=== PATIENT | male | born 1970 | race Caucasian/White ===

== ENCOUNTER 2017-11-03 12:52 | Observation (INO) ==
--- NOTE | 2017-11-03 12:57 | Emergency Department Note ---
Disposition Clinical Impression: Chest pain, COPD (chronic obstructive pulmonary disease), Hypertension Disposition: Admitted As Inpatient Condition: Good General Adult HPI - General Chief complaint: ED Shortness of Breath/Dyspnea Stated complaint: ELIU and chest pain Time Seen by Provider: 11/03/17 12:53 Source: patient Mode of arrival: ambulatory Limitations: no limitations Nursing Notes Reviewed: Yes Vital Signs Reviewed: Yes - History of Present Illness HPI Narrative: Patient claims up and having chest pain with shortness breath off and on for a couple of days. He got concerned was blood pressure was high today so he came to the emergency department. 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 Radiation: non-radiation Pain Severity: moderate Quality: aching Consistency: intermittent Improves with: nothing Worsens with: nothing Associated symptoms: Reports: denies other symptoms - Related Data Home Medications Medication Instructions Recorded Confirmed Furosemide [Lasix] 20 mg PO DAILY 08/31/16 11/03/17 Metoprolol XL (24 HR) Succ [Toprol 50 mg PO DAILY 08/31/16 11/03/17 Xl] Spironolactone [Aldactone] 25 mg PO BID 08/31/16 11/03/17 Previous Rx's Medication Instructions Recorded Aspirin 81 mg PO DAILY #30 tab.chew 05/17/16 Lisinopril [Zestril] 2.5 mg PO DAILY #30 tablet 05/17/16 Rosuvastatin [Crestor] 40 mg PO HS #30 tablet 05/17/16 Ticagrelor [Brilinta] 90 mg PO BID #60 tablet 05/17/16 Amiodarone [Cordarone] 200 mg PO DAILY #30 tablet 06/22/17 Allergies Allergy/AdvReac Type Severity Reaction Status Date / Time Penicillins Allergy Unknown Unkown Verified 11/03/17 12:53 All systems ED: reviewed and negative except as stated. Review of Systems: As Per HPI Constitutional: Denies: fever, chills, weakness, weight change Eyes: Denies: eye pain, eye discharge, vision change ENT ED: Denies: ear pain, throat pain, dental pain, hearing loss, epistaxis, congestion, dysphagia Cardiovascular: Reports: as per HPI, chest pain. Denies: palpitations, dyspnea on exertion, edema, syncope Respiratory: Reports: as per HPI, other (intermittent SOB). Denies: cough, dyspnea, wheezes, hemoptysis, stridor Gastrointestinal: Denies: abdominal pain, nausea, vomiting, diarrhea, constipation, hematemesis, melena, hematochezia Genitourinary: Denies: urgency, dysuria, frequency, hematuria Musculoskeletal: Denies: back pain, neck pain, arthralgia, myalgia Integumentary: Denies: rash, abrasion, lesions Neurological: Denies: headache, weakness, numbness, paresthesias, confusion, abnormal gait, vertigo Psychiatric: Denies: anxiety, depression, suicidal thoughts, homicidal thoughts , auditory hallucinations, visual hallucinations Endocrine: Denies: fatigue Hematological/Lymphatic: Denies: easy bleeding, easy bruising Allergic/Immunologic: Denies: facial swelling, urticaria Past Medical History - Past Medical History Attestation: Yes The following information was validated with the patient. Source: patient, nursing notes reviewed Medical history: Reports: cardiomyopathy, coronary artery disease, GERD, hyperlipidemia, hypertension, myocardial infarction, SVT Surgical history: Reports: no surgical history Psychiatric history: Reports: no psych history - Social History Smoking Status: Former smoker Smokeless Tobacco Status: No Alcohol use: Reports: none Drug use: Reports: none Physical Exam - General Limitations: no limitations General appearance: alert, in no apparent distress - Head Head exam: atraumatic, normocephalic, normal inspection - Eye Eye exam: Present: normal appearance, PERRL, EOMI - ENT ENT exam: normal exam, normal oropharynx, mucous membranes moist - Neck Neck exam: Present: normal inspection, full ROM, trachea midline - Chest Chest inspection: Present: normal inspection, symmetric chest wall rise - Respiratory Respiratory exam: Present: normal lung sounds bilaterally - Cardiovascular Cardiovascular exam: Present: regular rate, normal rhythm, normal heart sounds - Abdominal Exam Abdominal exam: Present: soft, Non-Tender. Absent: tenderness, distention, guarding, rebound, rigidity - Extremities Exam Extremities exam: Present: normal inspection, full ROM. Absent: tenderness, pedal edema - Back Exam Back exam: Present: normal inspection, full ROM. Absent: tenderness - Neurological Exam Neurological exam: Present: alert, oriented X3 - Psychiatric Psychiatric exam: Present: normal affect, normal mood - Skin Skin exam: Present: warm, dry, intact Medical Decision Making - [facility] Narrative Medical decision making narrative: I reviewed the patient's medication list. I discussed laboratory findings EKG and x-ray findings with the patient and they have decided they would like to stay overnight for a rule out to be safe. Case discussed with Dr. Alfaro patient is to be admitted to his care - EKG Data EKG #1 EKG attestation: Yes I reviewed and interpreted this EKG. EKG results narrative: EKG shows sinus rhythm with possible left atrial enlargement. Ventricular rate of 93 bpm. MO interval 184 ms. QRS duration 112 ms. QT interval 372 ms. QTC 422 ms. R axis of 96 degrees. There is no acute ST elevation.
[2017-11-03] MEDS ORDERED: Aspirin 81 MG TAB.CHEW PO STA (12:59)
[2017-11-03] MEDS ORDERED: Nitroglycerin 0.4 MG TAB.SUBL SL PRN ×3 (12:59→15:45)
[2017-11-03] MEDS ORDERED: Ipratropium/Albuterol Neb 3 ML IH ONE (12:59)
[2017-11-03 13:22] LABS: Basophils % 0.4 %; Eosinophils # 0.2 K/mcL (0.0-0.6); Eosinophils % 1.9 %; Hematocrit 42.7 % (37.5-50.1); Hemoglobin 14.2 g/dL (12.9-16.9); Immature Granulocytes % 0.4 % (0-4); Lymphocytes # 2.4 K/mcL (0.6-4.6); Lymphocytes % 22.2 %; Mean Corpuscular HGB Conc 33.3 g/dL (31.6-35.5); Mean Corpuscular Hemoglobin 28.6 pg (28.0-33.3); Mean Corpuscular Volume 86.1 fL (83.0-100.0); Mean Platelet Volume 11.5 fL (9.4-12.4); Monocytes # 0.5 K/mcL (0.0-1.3); Monocytes % 4.9 %; Neutrophils # 7.5 K/mcL (1.6-8.9); Platelet Count 221 K/mcL (140-400); Red Blood Count 4.96 M/mcL (4.19-5.50); Segmented Neutrophils % 70.2 %
[2017-11-03 13:29] LABS: Prothrombin Time 11.1 Seconds (9.4-12.1)
[2017-11-03 13:31] LABS: Activated Partial Thrombo Time 32.2 Seconds (26.0-36.0)
[2017-11-03 13:40] LABS: Alanine Aminotransferase 53 Units/L (7-52); Albumin 3.9 g/dL (3.5-5.7); Albumin/Globulin Ratio 1.4 (1.1-2.2); Alkaline Phosphatase 72 Units/L (34-104); Aspartate Amino Transferase 34 Units/L (13-39); BUN/Creatinine Ratio 11 (6-26); Bilirubin,Total 1.1 mg/dL (0.3-1.0); Blood Urea Nitrogen 11 mg/dL (6-20); Calcium 8.9 mg/dL (8.6-10.3); Carbon Dioxide 25 mEq/L (23-29); Chloride 105 mEq/L (98-107); Globulin 2.7 g/dL (2.4-3.5); Glucose 162 mg/dL (70-105); Osmolality,Calculated 291 (280-300); Potassium 3.6 mEq/L (3.5-5.1); Sodium 139 mEq/L (136-145); Total Protein 6.6 g/dL (6.4-8.9); eGFR For Non-African Americans > 60 (> 60)
[2017-11-03 13:46] LABS: Troponin I 0.03 ng/mL (< 0.04)
[2017-11-03] MEDS ORDERED: Naloxone 0.4 MG/ML INJ IVP PRN (15:45)
[2017-11-03] MEDS ORDERED: 0.9 % Sodium Chloride 1,000 ML IVC SCH (15:45)
[2017-11-03] MEDS: Furosemide 20 MG TABLET PO SCH (16:03)
[2017-11-03] MEDS: *HR* Amiodarone 200 MG TABLET PO SCH (16:03)
[2017-11-03] MEDS: Metoprolol XL (24 HR) Succ 50 MG TAB.ER.24H PO SCH (16:03)
[2017-11-03] MEDS: Spironolactone 25 MG TABLET PO SCH (20:29)
[2017-11-03] MEDS: *HR* Ticagrelor 90 MG TABLET PO SCH (20:29)
[2017-11-04] MEDS ORDERED: Ipratropium/Albuterol Neb 3 ML IH PRN (00:26)
[2017-11-04] MEDS ORDERED: Isovue-370 500 ML INFUS..BTL IV ONE (01:23)
[2017-11-04] MEDS ORDERED: Furosemide 40 MG/4 ML VIAL IVP ONE (01:27)
[2017-11-04 05:15] LABS: Basophils % 0.3 %; Eosinophils # 0.1 K/mcL (0.0-0.6); Eosinophils % 0.7 %; Hematocrit 42.6 % (37.5-50.1); Hemoglobin 14.2 g/dL (12.9-16.9); Immature Granulocytes % 0.5 % (0-4); Lymphocytes # 2.2 K/mcL (0.6-4.6); Lymphocytes % 15.1 %; Mean Corpuscular HGB Conc 33.3 g/dL (31.6-35.5); Mean Corpuscular Hemoglobin 28.6 pg (28.0-33.3); Mean Corpuscular Volume 85.9 fL (83.0-100.0); Mean Platelet Volume 11.4 fL (9.4-12.4); Monocytes % 6.8 %; Neutrophils # 11.3 K/mcL (1.6-8.9); Platelet Count 225 K/mcL (140-400); Red Blood Count 4.96 M/mcL (4.19-5.50); Red Cell Distribution Width 13.9 % (11.5-14.5); Segmented Neutrophils % 76.6 %
[2017-11-04 05:33] LABS: BUN/Creatinine Ratio 13 (6-26); Blood Urea Nitrogen 12 mg/dL (6-20); Calcium 9.1 mg/dL (8.6-10.3); Carbon Dioxide 30 mEq/L (23-29); Chloride 98 mEq/L (98-107); Glucose 121 mg/dL (70-105); Osmolality,Calculated 281 (280-300); Potassium 3.7 mEq/L (3.5-5.1); Sodium 135 mEq/L (136-145); eGFR For Non-African Americans > 60 (> 60)
--- NOTE | 2017-11-04 08:51 | Event Note ---
Date of Encounter: 11/04/17 Time of Encounter: 08:45 Received call from nurse at 12:16 AM that patient became short of breath, diaphoretic and with RR in 30s upon ambulating to restroom. Symptoms persisted at rest. Labs ordered and with elevated D-dimer. EKG repeated and reportedly benign. CXR performed and with pulmonary edema. IV fluids were held and pt was administered 40mg of lasix IV once. Respiratory therapy assessed patient and a duoneb was administered and then ordered q2h PRN. A CTPA was performed given abrupt onset of respiratory distress and elevated d-dimer. The study was negative for PE and further demonstrated pulmonary edema. Per nurse report this morning, pt was improved and no no longer under respiratory distress.
[2017-11-04] MEDS ORDERED: Furosemide 20 MG TABLET PO SCH (09:00)
[2017-11-04] MEDS ORDERED: *HR* Amiodarone 200 MG TABLET PO SCH (09:00)
[2017-11-04] MEDS ORDERED: Metoprolol XL (24 HR) Succ 50 MG TAB.ER.24H PO SCH (09:00)
[2017-11-04] MEDS: *HR* Amiodarone 200 MG TABLET PO SCH (09:26)
[2017-11-04] MEDS: Metoprolol XL (24 HR) Succ 50 MG TAB.ER.24H PO SCH (09:26)
[2017-11-04] MEDS: Spironolactone 25 MG TABLET PO SCH ×2 (09:26→21:26)
[2017-11-04] MEDS: Furosemide 20 MG TABLET PO SCH (09:27)
[2017-11-04] MEDS: Aspirin 81 MG TAB.CHEW PO SCH (09:27)
[2017-11-04] MEDS: *HR* Ticagrelor 90 MG TABLET PO SCH ×2 (09:28→21:26)
--- NOTE | 2017-11-04 13:17 | Internal Med History&Physical ---
Date of Encounter: 11/04/17 Time of Encounter: 12:35 Assessment and Plan (1) Shortness of breath Current visit: No Status: Acute Possibly multifactorial etiology. Chest CTA done earlier today to further evaluate elevated d-dimer showed findings consistent with CHF. Room air oximetry will be checked prior to discharge. (2) Combined systolic and diastolic congestive heart failure Current visit: No Status: Chronic Order BN peptide. Lasix dose will be increased. Lisinopril has been increased. Continue Aldactone and Toprol. Qualifiers: Heart failure chronicity: chronic Qualified Code(s): I50.42 - Chronic combined systolic (congestive) and diastolic (congestive) heart failure (3) Blood glucose elevated Current visit: No Status: Acute Hemoglobin A1c was 5.6% on 05/16/2016. Recheck in a.m. (4) Leukocytosis Current visit: No Status: Acute Present intermittently since October 2013. Recheck in a.m. Qualifiers: Leukocytosis type: unspecified Qualified Code(s): D72.829 - Elevated white blood cell count, unspecified (5) Chest pain Current visit: Yes Status: Acute Repeat cardiac enzymes were ordered through emergency room. Qualifiers: Chest pain type: unspecified Qualified Code(s): R07.9 - Chest pain, unspecified (6) CAD (coronary artery disease) Current visit: No Status: Chronic Continue Toprol, aspirin, and Brilinta. Add isosorbide. Qualifiers: Coronary Disease-Associated Artery/Lesion type: viejas artery [place] vs. transplanted heart: viejas heart Associated angina: angina presence unspecified Qualified Code(s): I25.10 - Atherosclerotic heart disease of viejas coronary artery without angina pectoris Internal Medicine - H&P: HPI Chief complaint: Chest pain and dyspnea Admitted From: Emergency Dept Plans for Post Hospital Care: Home History of present illness: Mr. Chong is a 47 year old male who came to emergency room stating he had onset of discomfort in his left chest area on November 01 while at leisure. He describes it as a "sticking/prickling" sensation that lasted a few seconds but recurred several times throughout the day. On November 03 he noticed dyspnea and became concerned after blood pressure was found to be elevated at 197/117. He was evaluated in emergency room and admitted to [facility] floor for ongoing care needs. He states his dyspnea is improved and chest pain is essentially resolved. Cardiovascular history is significant for hypertension and known ASHD status post SC April 2016. LHC May 2016 showed patent stent in the LAD, 30% mid LAD , 30% mid circumflex, 40% distal circumflex, 15% left PDA, and 50-60% mid RCA occlusion. No further intervention was done. He has ischemic cardiomyopathy with echocardiogram 06/21/2017 showing LVEF of 30%. The left ventricle end- diastolic diameter was elevated 6.72 cm. Intraventricular septum and posterior wall thickness measurements were 0.92 and 1.03 cm respectively. There was LAE at 4.30 cm. The E/A ratio was 1.8 and he was felt to have moderate diastolic dysfunction. He had ventricular tachycardia with ablation procedure at [facility] and placement of AICD May 2016. He denies DVT or pulmonary embolus. Past Med Surg Social Fam HX - Past Medical History Medical history: cardiomyopathy, coronary artery disease, GERD, hyperlipidemia, hypertension, myocardial infarction, SVT Psychiatric history: no psych history - Past Surgical History Surgical History: no surgical history Additional surgical history: heart ablation, defibrillator - Social History Smoking Status: Former smoker Smokeless Tobacco Status: No Alcohol use: none Drug use: none - Family History Mother Living Status: Still Living Hx Family Cardiac Disorders: Yes (SC at 46yr old) Internal Medicine - H&P: Meds Aspirin 81 mg PO DAILY #30 tab.chew 05/17/16 [Rx] Lisinopril [Zestril] 2.5 mg PO DAILY #30 tablet 05/17/16 [Rx] Rosuvastatin [Crestor] 40 mg PO HS #30 tablet 05/17/16 [Rx] Ticagrelor [Brilinta] 90 mg PO BID #60 tablet 05/17/16 [Rx] Furosemide [Lasix] 20 mg PO DAILY 08/31/16 [History] Metoprolol XL (24 HR) Succ [Toprol Xl] 50 mg PO DAILY 08/31/16 [History] Spironolactone [Aldactone] 25 mg PO BID 08/31/16 [History] Amiodarone [Cordarone] 200 mg PO DAILY #30 tablet 06/22/17 [Rx] 3 Allergy/AdvReac Type Severity Reaction Status Date / Time Penicillins Allergy Unknown Unkown Verified 11/03/17 12:53 All Systems PM: A 10-system review of systems was performed and is negative for pertinent findings except as documented above in the HPI. Review of systems: Gen.: He states his weight has been stable the past few months Cardiovascular: As per history of present illness Respiratory: He smoked from age [age] up to 4 packs per day. He had PFTs 2017 which showed FVC 60% predicted, FEV1 54% predicted, FEV1/FVC 86%, MVV 67%, RV 212% predicted, and DLCO (uncorrected) 80. There was significant improvement in FEV1 postbronchodilator. He does not use home oxygen. GI: He denies disorders of his liver gallbladder or exocrine pancreas. He states he had loose stools almost continuously with occasional visible bright red blood in the last 3 months. He has not seen his PCP about this specifically. He reports discontinuing Belviq approximately one week ago and stools have improved but not completely normalized. : He denies hematuria dysuria or kidney stones Neurologic: He denies large distribution strokes or seizures. Endocrine: He has hyperlipidemia but denies diabetes or thyroid disease. Hematology/oncology: He denies blood disorders cancers or anemia Psychiatric: He denies anxiety depression or other mental health issues [place] skeletal: He denies arthritis gout or other bone joint or muscle disorders. - Constitutional Vitals: Temp Pulse Resp BP Pulse Ox 98.6 F 83 20 138/89 96 11/04/17 11:25 11/04/17 11:25 11/04/17 11:25 11/04/17 11:25 11/04/17 11:25 Exam: Gen.: He is a well-developed obese male lying in bed who appears dyspneic with exertion. HEENT: Head is atraumatic and normocephalic. Eyes: EOMI. There is no scleral icterus. Mouth: Mucosa is moist. Neck: Supple and nontender. There is no thyromegaly or adenopathy noted. Heart: Regular without murmurs gallops or ectopics Chest: A defibrillator is in place in the left upper chest wall. Lungs: No wheezes or crackles are heard. Abdomen: Soft and nontender. No masses or guarding are noted. Extremities: There is no cyanosis or clubbing noted. There is trace edema of the lower anterior shins bilaterally. Dorsalis pedis and posterior tibial pulses are 1-2 over 2 bilaterally. Neurologic: Mental status: He is talkative and a good historian. Cranial nerves : Smile is symmetric. Forehead wrinkles bilaterally. Tongue protrudes midline. EOMI. Motor: There is no pronator drift. Cerebellar: Finger to nose is intact bilaterally. Skin: Warm and dry Internal Med - H&P Results - Labs CBC & Chem 7: 11/04/17 05:00 11/04/17 05:00 Labs: Short CBC 11/04/17 Range/Units 05:00 WBC 14.8 H (4.3-11.1) K/mcL Hgb 14.2 (12.9-16.9) g/dL Hct 42.6 (37.5-50.1) % Plt Count 225 (140-400) K/mcL Neutrophils # 11.3 H (1.6-8.9) K/mcL BMP 11/04/17 05:00 Sodium 135 L Potassium 3.7 Chloride 98 Carbon Dioxide 30 H BUN 12 Creatinine 0.96 Glucose 121 H Calcium 9.1 Cardiac Enzymes 11/03/17 11/04/17 11/04/17 Range/Units 18:59 00:43 07:30 Troponin I 0.03 0.03 0.03 (< 0.04) ng/mL - Impressions ITS Impressions Chest X-Ray 11/04/17 00:21 IMPRESSION: Worsening pulmonary edema. D/ / Bruce Ramirez / Bruce Ramirez Interpreting Provider: Bruce Ramirez Chest CTA 11/04/17 01:23 IMPRESSION: 1. No evidence of pulmonary embolism. 2. Findings compatible with CHF including cardiomegaly, evidence of elevated central venous pressures, mild interstitial pulmonary edema, and small bilateral pleural effusions. 3. Hepatic steatosis. 4. Borderline enlarged mediastinal lymph nodes, which are nonspecific. D/ / 11/04/2017 05:55:50 Abhinav Du MD / rickiyer Interpreting Provider: Abhinav Du MD
[2017-11-04] MEDS ORDERED: Albuterol 2.5 MG/3 ML NEBULIZER IH PRN (13:57)
[2017-11-04] MEDS: Furosemide 40 MG TABLET PO SCH (16:32)
[2017-11-04] MEDS: Isosorbide MONOnitrate (24 HR) 30 MG TAB.ER.24H PO SCH (16:43)
[2017-11-04] MEDS ORDERED: Furosemide 20 MG TABLET PO ONE ×2 (16:45)
[2017-11-05 06:26] LABS: Basophils # 0.1 K/mcL (0.0-0.2); Basophils % 0.5 %; Eosinophils # 0.2 K/mcL (0.0-0.6); Eosinophils % 2.3 %; Hemoglobin 13.2 g/dL (12.9-16.9); Immature Granulocytes % 0.5 % (0-4); Lymphocytes # 2.6 K/mcL (0.6-4.6); Lymphocytes % 24.4 %; Mean Corpuscular HGB Conc 33.8 g/dL (31.6-35.5); Mean Corpuscular Hemoglobin 29.2 pg (28.0-33.3); Mean Corpuscular Volume 86.3 fL (83.0-100.0); Monocytes # 0.8 K/mcL (0.0-1.3); Monocytes % 7.9 %; Neutrophils # 6.8 K/mcL (1.6-8.9); Platelet Count 207 K/mcL (140-400); Red Blood Count 4.52 M/mcL (4.19-5.50); Segmented Neutrophils % 64.4 %
[2017-11-05 06:45] LABS: BUN/Creatinine Ratio 14 (6-26); Blood Urea Nitrogen 13 mg/dL (6-20); Calcium 8.9 mg/dL (8.6-10.3); Carbon Dioxide 30 mEq/L (23-29); Chloride 102 mEq/L (98-107); Glucose 111 mg/dL (70-105); Magnesium 1.9 mg/dL (1.6-2.6); Osmolality,Calculated 291 (280-300); Potassium 3.9 mEq/L (3.5-5.1); Sodium 140 mEq/L (136-145); eGFR For Non-African Americans > 60 (> 60)
[2017-11-05] MEDS: Aspirin 81 MG TAB.CHEW PO SCH (09:20)
[2017-11-05] MEDS: Isosorbide MONOnitrate (24 HR) 30 MG TAB.ER.24H PO SCH (09:20)
[2017-11-05] MEDS: Spironolactone 25 MG TABLET PO SCH (09:20)
[2017-11-05] MEDS: Metoprolol XL (24 HR) Succ 50 MG TAB.ER.24H PO SCH (09:21)
[2017-11-05] MEDS: *HR* Amiodarone 200 MG TABLET PO SCH (09:21)
[2017-11-05] MEDS: Furosemide 40 MG TABLET PO SCH (09:21)
[2017-11-05] MEDS: *HR* Ticagrelor 90 MG TABLET PO SCH (09:23)
[2017-11-05 10:39] VITALS: BP 96/59
[2017-11-05 10:44] LABS: Estimated Average Glucose 126 mg/dl
--- NOTE | 2017-11-05 12:33 | Discharge Summary ---
Date of Encounter: 11/05/17 Time of Encounter: 12:10 - Discharge Diagnosis (1) Combined systolic and diastolic congestive heart failure Priority: Primary Status: Chronic Qualifiers: Heart failure chronicity: chronic Qualified Code(s): I50.42 - Chronic combined systolic (congestive) and diastolic (congestive) heart failure (2) Leukocytosis Priority: Secondary Status: Resolved Qualifiers: Leukocytosis type: unspecified Qualified Code(s): D72.829 - Elevated white blood cell count, unspecified (3) Prediabetes Priority: Secondary Status: Acute (4) Chest pain Priority: Secondary Status: Resolved Qualifiers: Chest pain type: unspecified Qualified Code(s): R07.9 - Chest pain, unspecified (5) CAD (coronary artery disease) Priority: Secondary Status: Chronic Qualifiers: Coronary Disease-Associated Artery/Lesion type: [place] artery [place] vs. transplanted heart: morongo heart Associated angina: angina presence unspecified Qualified Code(s): I25.10 - Atherosclerotic heart disease of [place] coronary artery without angina pectoris Hospital course: Mr. Chong is a 47 year old male who came to emergency room stating he had onset of discomfort in his left chest area on November 01 while at leisure. He describes it as a "sticking/prickling" sensation that lasted a few seconds but recurred several times throughout the day. On November 03 he noticed dyspnea and became concerned after blood pressure was found to be elevated at 197/117. He was evaluated in emergency room and admitted to [facility] floor for ongoing care needs. Initial orders were written by the emergency room physician. I saw him on November 04 and performed a history and physical. Chest CTA was done in emergency room to evaluate elevated d-dimer. Findings consistent with CHF were noted without evidence of PE. I increased his Lasix and lisinopril. Imdur was started. He had clinical improvement with resolution of dyspnea by the time I saw him on November 05. BN peptide improved to 291 the day of discharge from 437 the previous day. He will continue on this regiment at discharge. Repeat cardiac enzymes showed no evidence of myocardial damage. He did not have chest pain recurrence after I saw him November 04. Telemetry strips showed occasional bradycardia with heart rate dropping to ~ 40/ min before AICD began pacing. The patient reported he had had a few episodes of lightheadedness/near syncope in the past but none for 6 months. I recommended he follow with Dr. Stevan Herrera within the next week to evaluate and possibly adjust AICD settings. Hemoglobin A1c returned at 6.0% consistent with prediabetes. I discussed with him modification of diet and attempting weight loss. His PCP can monitor this. WBC rohit to 14.8 on November 04 but had returned to normal range at 10.5 by day of discharge with no left shift on differential. He remained afebrile and asymptomatic. On November 05 he felt stable for discharge home. He will follow with his PCP Dr. Gato Lama within [address] Stevan Herrera in 1-2 weeks - Time Spent with Patient Total time spent providing and/or coordinating discharge services: - Discharge Medications Prescriptions: Furosemide [Lasix] 40 mg PO DAILY #30 tablet Isosorbide MONOnitrate (24 HR) [Imdur] 30 mg PO DAILY #30 tab.er.24h Lisinopril [Zestril] 10 mg PO DAILY #30 tablet Home Medications: Aspirin 81 mg PO DAILY #30 tab.chew 05/17/16 [Rx] Rosuvastatin [Crestor] 40 mg PO HS #30 tablet 05/17/16 [Rx] Ticagrelor [Brilinta] 90 mg PO BID #60 tablet 05/17/16 [Rx] Metoprolol XL (24 HR) Succ [Toprol Xl] 50 mg PO DAILY 08/31/16 [History] Spironolactone [Aldactone] 25 mg PO BID 08/31/16 [History] Amiodarone [Cordarone] 200 mg PO DAILY #30 tablet 06/22/17 [Rx] Furosemide [Lasix] 40 mg PO DAILY #30 tablet 11/05/17 [Rx] Isosorbide MONOnitrate (24 HR) [Imdur] 30 mg PO DAILY #30 tab.er.24h 11/05/17 [ Rx] Lisinopril [Zestril] 10 mg PO DAILY #30 tablet 11/05/17 [Rx] Allergies/Adverse Reactions: 3 Allergy/AdvReac Type Severity Reaction Status Date / Time Penicillins Allergy Unknown Unkown Verified 11/03/17 12:53 Date of admission: 11/03/17 15:05 Primary care physician: Gato Lama, DO - Constitutional Vitals: Temp Pulse Resp BP Pulse Ox 98.3 F 74 17 96/59 95 11/05/17 10:38 11/05/17 10:38 11/05/17 10:38 11/05/17 10:38 11/05/17 10:38 - Patient Status Disposition: Home, Self-Care Condition: Good - Discharge Instructions Follow Up With: Gato Lama DO [Primary Care Provider] - 1 week Stevan Herrera MD [Partnered Physician] - 1 week - Diet and Activity Activity: resume usual activities as tolerated Diet: low fat, low cholesterol
[2017-11-05] MEDS ORDERED: Furosemide 20 MG TABLET PO ONE (16:31)
--- NOTE | 2017-11-07 16:43 | Electrocardiograph Report ---
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
--- NOTE | 2017-11-08 17:32 | Electrocardiograph Report ---
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
--- NOTE | 2017-11-08 17:36 | Electrocardiograph Report ---
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
== END 2017-11-05 13:27 | disposition home or self-care (01) ==
LOC: EMEROOPIK 12:52 → INPPIK 12:52
PROVIDERS: ADMIT Internal Medicine; ATTEND Internal Medicine

== ENCOUNTER 2019-07-30 08:39 | Inpatient (IN) ==
[2019-07-30 09:13] LABS: Basophils # 0.1 K/mcL (0.0-0.2); Basophils % 0.4 %; Eosinophils # 0.3 K/mcL (0.0-0.6); Eosinophils % 2.5 %; Hemoglobin 14.4 g/dL (12.9-16.9); Immature Granulocytes % 0.5 % (0-4); Lymphocytes # 2.4 K/mcL (0.6-4.6); Lymphocytes % 18.3 %; Mean Corpuscular HGB Conc 32.7 g/dL (31.6-35.5); Mean Corpuscular Hemoglobin 27.5 pg (28.0-33.3); Mean Corpuscular Volume 84.1 fL (83.0-100.0); Mean Platelet Volume 11.4 fL (9.4-12.4); Monocytes % 7.7 %; Neutrophils # 9.4 K/mcL (1.6-8.9); Platelet Count 311 K/mcL (140-400); Red Blood Count 5.23 M/mcL (4.19-5.50); Red Cell Distribution Width 13.2 % (11.5-14.5); Segmented Neutrophils % 70.6 %; White Blood Count 13.3 K/mcL (4.3-11.1)
[2019-07-30 09:19] LABS: INR 1.1; Prothrombin Time 12.5 Seconds (9.4-12.1)
[2019-07-30 09:28] LABS: Alanine Aminotransferase 22 Units/L (7-52); Albumin 3.8 g/dL (3.5-5.7); Alkaline Phosphatase 79 Units/L (34-104); Aspartate Amino Transferase 20 Units/L (13-39); BUN/Creatinine Ratio 16 (6-26); Bilirubin,Total 0.7 mg/dL (0.3-1.0); Blood Urea Nitrogen 17 mg/dL (6-20); Calcium 8.9 mg/dL (8.6-10.3); Carbon Dioxide 23 mEq/L (23-29); Chloride 100 mEq/L (98-107); Glucose 112 mg/dL (70-105); Magnesium 1.9 mg/dL (1.6-2.6); Osmolality,Calculated 282 (280-300); Sodium 135 mEq/L (136-145); Total Protein 7.8 g/dL (6.4-8.9); eGFR For African Americans > 60 (> 60); eGFR For Non-African Americans > 60 (> 60)
[2019-07-30] MEDS ORDERED: Isovue-370 500 ML BOTTLE IVP ONE (09:31)
[2019-07-30] MEDS ORDERED: levoFLOXacin 750 MG/150 ML 750 MG/150 ML BAG IVPB SCH (11:30)
[2019-07-30 13:55] LABS: Bilirubin,Urine Negative (Negative); Blood,Urine Negative (Negative); Clarity,Urine Clear (Clear); Color,Urine Yellow (Yellow); Glucose,Urine (UA) Normal (Normal); Ketones,Urine Negative (Negative); Leukocyte Esterase,Urine Negative (Negative); Nitrite,Urine Negative (Negative); PH,Urine 6.5 pH Units (5.0-8.0); Protein,Urine Negative (Neg-Trace); Urobilinogen,Urine Normal (Normal)
[2019-07-30] MEDS ORDERED: Mag Hydrox/Al Hydrox/Simeth 30 ML UDC PO PRN (15:08)
[2019-07-30] MEDS ORDERED: Ondansetron 4 MG/2 ML VIAL IVP PRN (15:08)
[2019-07-30] MEDS ORDERED: MOM Conc 10 ML UD.LIQ PO PRN (15:08)
[2019-07-30] MEDS ORDERED: Acetaminophen 325 MG TABLET PO PRN (15:08)
[2019-07-30] MEDS ORDERED: Naloxone 0.4 MG/ML INJ IVP PRN (15:08)
[2019-07-30] MEDS ORDERED: Ipratropium/Albuterol Neb 3 ML IH PRN (15:19)
[2019-07-30] MEDS: Furosemide 20 MG TABLET PO SCH (17:12)
[2019-07-30] MEDS: Spironolactone 25 MG TABLET PO SCH (21:08)
[2019-07-30] MEDS: *HR* Ticagrelor 90 MG TABLET PO SCH (21:08)
[2019-07-30 23:09] LABS: Adenovirus Not Detected (Not Detect); Bordetella Pertussis Not Detected (Not Detect); Chlamydophila pneumoniae Not Detected (Not Detect); Coronavirus 229E Not Detected (Not Detect); Coronavirus HKU1 Not Detected (Not Detect); Coronavirus NL63 Not Detected (Not Detect); Coronavirus OC43 Not Detected (Not Detect); Human Metapneumovirus Not Detected (Not Detect); Human Rhinovirus/Enterovirus Not Detected (Not Detect); Influenza A Subtype 2009 H1 Not Detected (Not Detect); Influenza B Not Detected (Not Detect); Mycoplasma pneumoniae Not Detected (Not Detect); Parainfluenza Virus 1 Not Detected (Not Detect); Parainfluenza Virus 2 Not Detected (Not Detect); Parainfluenza Virus 3 Not Detected (Not Detect); Parainfluenza Virus 4 Not Detected (Not Detect); Respiratory Syncytial Virus Not Detected (Not Detect)
[2019-07-31] MEDS: Spironolactone 25 MG TABLET PO SCH ×2 (08:15→20:41)
[2019-07-31] MEDS: Metoprolol XL (24 HR) Succ 50 MG TAB.ER.24H PO SCH (08:15)
[2019-07-31] MEDS: *HR* Ticagrelor 90 MG TABLET PO SCH ×2 (08:15→20:41)
[2019-07-31] MEDS: Isosorbide MONOnitrate (24 HR) 60 MG TAB.ER.24H PO SCH (08:15)
[2019-07-31] MEDS: *HR* Amiodarone 200 MG TABLET PO SCH (08:15)
[2019-07-31] MEDS: Aspirin 81 MG TAB.CHEW PO SCH (08:15)
[2019-07-31] MEDS: Furosemide 20 MG TABLET PO SCH ×2 (08:15→16:13)
[2019-07-31 09:29] LABS: Basophils % 0.3 %; Eosinophils # 0.1 K/mcL (0.0-0.6); Eosinophils % 0.9 %; Hematocrit 43.4 % (37.5-50.1); Hemoglobin 14.1 g/dL (12.9-16.9); Immature Granulocytes % 0.5 % (0-4); Lymphocytes # 2.1 K/mcL (0.6-4.6); Lymphocytes % 16.2 %; Mean Corpuscular HGB Conc 32.5 g/dL (31.6-35.5); Mean Corpuscular Hemoglobin 27.8 pg (28.0-33.3); Mean Corpuscular Volume 85.6 fL (83.0-100.0); Mean Platelet Volume 11.7 fL (9.4-12.4); Monocytes # 0.9 K/mcL (0.0-1.3); Monocytes % 6.8 %; Platelet Count 304 K/mcL (140-400); Red Blood Count 5.07 M/mcL (4.19-5.50); Red Cell Distribution Width 13.5 % (11.5-14.5); Segmented Neutrophils % 75.3 %; White Blood Count 12.8 K/mcL (4.3-11.1)
[2019-07-31 09:33] LABS: BUN/Creatinine Ratio 13 (6-26); Blood Urea Nitrogen 14 mg/dL (6-20); Calcium 8.9 mg/dL (8.6-10.3); Carbon Dioxide 27 mEq/L (23-29); Chloride 99 mEq/L (98-107); Glucose 141 mg/dL (70-105); Osmolality,Calculated 279 (280-300); Potassium 4.5 mEq/L (3.5-5.1); Sodium 133 mEq/L (136-145); eGFR For African Americans > 60 (> 60); eGFR For Non-African Americans > 60 (> 60)
[2019-07-31 10:03] LABS: Neutrophils # 9.6 K/mcL (1.6-8.9)
[2019-07-31] MEDS: levoFLOXacin 750 MG/150 ML 750 MG/150 ML BAG IVPB SCH (12:51)
[2019-07-31] MEDS: MethylPREDNISolone 40 MG/ML VIAL IVP SCH ×2 (12:51→20:41)
[2019-08-01] MEDS: MethylPREDNISolone 40 MG/ML VIAL IVP SCH ×3 (04:57→20:20)
[2019-08-01] MEDS: Isosorbide MONOnitrate (24 HR) 60 MG TAB.ER.24H PO SCH (08:50)
[2019-08-01] MEDS: Aspirin 81 MG TAB.CHEW PO SCH (08:50)
[2019-08-01] MEDS: Spironolactone 25 MG TABLET PO SCH ×2 (08:50→20:20)
[2019-08-01] MEDS: Metoprolol XL (24 HR) Succ 50 MG TAB.ER.24H PO SCH (08:51)
[2019-08-01] MEDS: *HR* Ticagrelor 90 MG TABLET PO SCH ×2 (08:51→20:20)
[2019-08-01] MEDS: *HR* Amiodarone 200 MG TABLET PO SCH (08:51)
[2019-08-01] MEDS: Furosemide 20 MG TABLET PO SCH ×2 (08:51→16:37)
[2019-08-01] MEDS: levoFLOXacin 750 MG/150 ML 750 MG/150 ML BAG IVPB SCH (12:34)
[2019-08-02] MEDS: MethylPREDNISolone 40 MG/ML VIAL IVP SCH (06:01)
[2019-08-02 06:54] VITALS: BP 119/72
[2019-08-02] MEDS: Isosorbide MONOnitrate (24 HR) 60 MG TAB.ER.24H PO SCH (08:21)
[2019-08-02] MEDS: Aspirin 81 MG TAB.CHEW PO SCH (08:21)
[2019-08-02] MEDS: Spironolactone 25 MG TABLET PO SCH (08:21)
[2019-08-02] MEDS: *HR* Amiodarone 200 MG TABLET PO SCH (08:21)
[2019-08-02] MEDS: *HR* Ticagrelor 90 MG TABLET PO SCH (08:21)
[2019-08-02] MEDS: Furosemide 20 MG TABLET PO SCH (08:21)
[2019-08-02] MEDS: Metoprolol XL (24 HR) Succ 50 MG TAB.ER.24H PO SCH (08:21)
[2019-08-02 08:40] LABS: Basophils # 0.1 K/mcL (0.0-0.2); Basophils % 0.2 %; Hematocrit 45.2 % (37.5-50.1); Immature Granulocytes % 2.3 % (0-4); Lymphocytes # 2.3 K/mcL (0.6-4.6); Lymphocytes % 8.5 %; Mean Corpuscular Hemoglobin 27.2 pg (28.0-33.3); Mean Corpuscular Volume 87.8 fL (83.0-100.0); Mean Platelet Volume 11.8 fL (9.4-12.4); Monocytes % 3.6 %; Neutrophils # 22.8 K/mcL (1.6-8.9); Platelet Count 372 K/mcL (140-400); Red Blood Count 5.15 M/mcL (4.19-5.50); Red Cell Distribution Width 13.9 % (11.5-14.5); Segmented Neutrophils % 85.4 %; White Blood Count 26.7 K/mcL (4.3-11.1)
[2019-08-02 08:53] LABS: BUN/Creatinine Ratio 25 (6-26); Blood Urea Nitrogen 32 mg/dL (6-20); Calcium 9.3 mg/dL (8.6-10.3); Carbon Dioxide 28 mEq/L (23-29); Chloride 100 mEq/L (98-107); Glucose 159 mg/dL (70-105); Osmolality,Calculated 292 (280-300); Potassium 4.7 mEq/L (3.5-5.1); Sodium 136 mEq/L (136-145); eGFR For African Americans > 60 (> 60); eGFR For Non-African Americans 59 (> 60)
[2019-08-02 09:07] LABS: Anisocytosis 1+ (Not Present); Platelet Estimate Normal (Normal); Toxic Granulation Present (Not Present)
[2019-08-02 10:41] LABS: Mycoplasma pneumoniae IgG 0.54 U/L (<=0.09)
== END 2019-08-02 12:07 | disposition home or self-care (01) | DRG 193 ==
LOC: EMEROOPIK 08:39 → INPPIK 08:39
PROVIDERS: ADMIT Family Medicine; ATTEND Family Medicine